=== PATIENT | male | born 1985 | race African-American/Black ===

== ENCOUNTER → 2019-01-11 | Outpatient (CLI) | payer OTHER | LOC: COL.RAD 14:00 | DX: S06.9X0S Unspecified intracranial injury without loss of consciousness, sequela (principal) ==

== ENCOUNTER → 2019-02-28 | Outpatient (CLI) | payer OTHER | LOC: COL.CARD 13:00 | DX: Z87.820 Personal history of traumatic brain injury (principal) ==